=== PATIENT | female | born 1980 | race Caucasian/White ===

== ENCOUNTER 2021-09-03 14:15 | Outpatient (CLI) | payer BC | END 2021-09-03 14:16 | disposition home or self-care (01) | LOC: CSHMAMMO 14:15 | PROVIDERS: ATTEND Nurse Practitioner Family | DX: Z53.9 Procedure and treatment not carried out, unspecified reason (principal) ==

== ENCOUNTER 2023-04-20 15:02 | Outpatient (CLI) | payer BC | END 2023-04-20 15:03 | disposition home or self-care (01) | LOC: CSHCT 15:02 | PROVIDERS: ATTEND Family Medicine | DX: R07.9 Chest pain, unspecified (principal) | CPT/HCPCS: 71046 ==

== ENCOUNTER 2023-12-31 08:05 | Outpatient (CLI) | payer BC | END 2023-12-31 08:06 | disposition home or self-care (01) | LOC: CSHMAMMO 08:05 | PROVIDERS: ATTEND Family Medicine | DX: Z12.31 Encounter for screening mammogram for malignant neoplasm of breast (principal); Z80.3 Family history of malignant neoplasm of breast | CPT/HCPCS: 77063; 77067 ==

== ENCOUNTER 2025-06-05 07:39 | Emergency (ER) | payer BC ==
[2025-06-05] MEDS ORDERED: Ketorolac Tromethamine 30 MG (1 mL) VIAL ONE (08:21)
[2025-06-05 08:29] LABS: Glucose, Urine (Dipstick) Normal (Negative); Leukocyte 25 (Negative); Protein, Urine (Dipstick) 15 mg/dl (Neg-Trace); Specific Gravity, Urine 1.025 (1.005-1.030)
[2025-06-05 08:29] LABS: #Basophils 0.06 10x3/uL (0.0-0.2); #Eosinophils 0.17 10x3/uL (0.0-0.5); #Monocytes 0.40 10x3/uL (0.0-1.1); #Neutrophils 2.91 10x3/uL (1.5-8.4); %Basophils 0.8 % (0.0-2.0); %Eosinophils 2.2 % (0.0-6.0); %Lymphocytes 53.5 % (18.0-47.0); %Monocytes 5.2 % (0.0-10.0); %Neutrophils 38.0 % (40.0-75.0); Hematocrit 45.5 % (34.9-44.5); Hemoglobin 16.0 g/dL (12.0-15.5); Mean Corpuscular Hemoglobin 31.2 pg (27.0-33.0); Mean Corpuscular Volume 88.7 fL (81.6-98.3); Platelet Count 221 10x3/uL (150-450); Red Blood Cell (RBC) Count 5.13 10x6/uL (3.90-5.03); White Blood Cell (WBC) Count 7.65 10x3/uL (3.5-10.5)
[2025-06-05 08:37] LABS: Bacteria/HPF 1+ HPF (None Seen); CAUTI Indications for Culture Pelvic or flank pain; RBC/HPF 0-3 HPF (0-3); WBC/HPF 0-3 HPF (0-3)
[2025-06-05 08:38] LABS: Urine Culture Reflex No No
[2025-06-05 08:48] LABS: AST (SGOT) 36 U/L (11-34); Albumin 4.3 g/dL (3.1-4.5); Alkaline Phosphatase 93 U/L (40-110); Anion Gap 16 mmol/L (10-20); BUN (Urea Nitrogen) 11 mg/dL (7.0-18.7); Bilirubin, Total 0.4 mg/dL (0.3-1.2); Calc. Creatinine Clearance 0 mL/min (70-130); Calcium 9.8 mg/dL (7.8-10.44); Carbon Dioxide 20 mmol/L (22-29); Chloride 108 mmol/L (98-107); Globulin 3.0 g/dL (2.4-3.5); Glucose 132 mg/dL (70-105); Potassium 4.0 mmol/L (3.5-5.1); Sodium 140 mmol/L (136-145)
[2025-06-05 09:06] LABS: ALT (SGPT) 61 U/L (Less than 34)
== END 2025-06-05 10:20 | disposition home or self-care (01) ==
LOC: CSHERS 07:39
DX: M54.50 Low back pain, unspecified (principal); R79.89 Other specified abnormal findings of blood chemistry; K76.0 Fatty (change of) liver, not elsewhere classified; I10 Essential (primary) hypertension; F17.290 Nicotine dependence, other tobacco product, uncomplicated; Z55.6 Problems related to health literacy
CPT/HCPCS: 74177; 80053; 81001; 85025; 96374; J1885